=== PATIENT | female | born 1975 | race Caucasian/White ===

== ENCOUNTER 2017-02-19 08:57 | Inpatient (IN) | payer MEDICAID ==
[2017-02-19] VITALS (9 sets, daily range): BP systolic 121–140; BP diastolic 66–84; PULSE 68–90; RESP 18–19; TEMP 98.9; Ht 152.4 cm; Wt 62.4 kg
[~2017-02-19] VITALS: Ht 152.4 cm; Wt 62.4 kg
[~2017-02-19 08:57] MED LIST: AMLO5TAB4 PO; HYD25 PO; LISI20TA11 PO; METO25TA7 PO
[2017-02-19] MEDS ORDERED: NITROGLYCERIN 2% 1 GM OINT PKT TD STA (09:36)
[2017-02-19] MEDS ORDERED: ASPIRIN 325 MG TAB PO STA (09:36)
--- NOTE | 2017-02-19 09:44 | ERA ---
ER Documentation Chief Complaint Date/Time DATE: 02/19/17 TIME: 09:41 Chief Complaint Pt with intermittent CP and L arm numbness X 2 weeks, Hypertensive. HPI This is a 41-year-old female with a history of hypertension. She states she has been having chest pain described as a pressure in the center of her chest with radiation to the left upper extremity with shortness of breath and some slight diaphoresis. She says that her pain is getting more frequent and is becoming exertional. Currently she has no pain. She says the pain also sometimes radiates into her neck. She denies any past history of coronary artery disease, myocardial infarction ROS All systems reviewed and are negative except as per history of present illness. Medications Home Meds Reported Medications Amlodipine Besylate* (Norvasc*) 5 Mg Tablet, 5 MG PO DAILY, TAB 12/25/15 Hydrochlorothiazide* (Hydrochlorothiazide*) 25 Mg Tab, 25 MG PO DAILY, TAB 09/15/14 Lisinopril* (Lisinopril*) 20 Mg Tablet, 20 MG PO DAILY, TAB 09/15/14 Metoprolol Succinate* (Toprol XL*) 25 Mg Tab.sr.24h, 25 MG PO DAILY, TAB 09/15/14 Allergies Allergies: Coded Allergies: No Known Allergy (Unverified , 02/19/17) PMhx/Soc History of Surgery: No Anesthesia Reaction: No Hx Neurological Disorder: No Hx Respiratory Disorders: No Hx Cardiac Disorders: Yes (htn) Hx Psychiatric Problems: No Hx Miscellaneous Medical Probl: Yes ( HYPERCHOLESTEROLEMIA) Hx Alcohol Use: No Hx Substance Use: No Hx Tobacco Use: No FmHx Family History: No coronary disease Physical Exam Vitals Vital Signs Date Time Temp Pulse Resp B/P Pulse Ox O2 Delivery O2 Flow Rate FiO2 02/19/17 09:02 98.9 74 18 181/99 100 Physical Exam Const: Well-developed, well-nourished Head: Atraumatic, normocephalic Eyes: Normal Conjunctiva, PERRLA, EOMI, normal sclera, no nystagmus ENT: Normal External Ears, Nose and Mouth, moist mucus membranes. Neck: Full range of motion. No meningismus, no lymphadenopathy. Resp: Clear to auscultation bilaterally, no wheezing, rhonchi, rales Cardio: Regular rate and rhythm, no murmurs, S1 S2 present Abd: Soft, non tender x 4, non distended. Normal bowel sounds, no guarding or rebound, no pulsitile abdominal masses or bruits Skin: No petechiae or rashes, no ecchymosis , no maculopapular rash Back: No midline or flank tenderness Ext: No cyanosis, or edema, FROM x 4, normal inspection, neurovascularly intact x 4 Neur: Awake and alert, STR 5/5 x 4, sensation intact x 4, no focal findings, cerebellum intact Psych: Normal Mood and Affect Result Diagram: 02/19/1795402/19/17954 Results 24 hrs Laboratory Tests Test 02/19/17 09:55 White Blood Count 9.510^3/ul Red Blood Count 4.3910^6/ul Hemoglobin 13.4g/dl Hematocrit 39.0% Mean Corpuscular Volume 88.8fl Mean Corpuscular Hemoglobin 30.5pg Mean Corpuscular Hemoglobin Concent 34.4g/dl Red Cell Distribution Width 12.3% Platelet Count 99692^3/UL Mean Platelet Volume 9.8fl Neutrophils % 53.8% Lymphocytes % 32.7% Monocytes % 5.7% Eosinophils % 7.5% Basophils % 0.2% Nucleated Red Blood Cells % 0.0/100WBC Neutrophils # 5.110^3/ul Lymphocytes # 3.110^3/ul Monocytes # 0.510^3/ul Eosinophils # 0.710^3/ul Basophils # 0.010^3/ul Nucleated Red Blood Cells # 0.010^3/ul Prothrombin Time 12.6Sec Prothrombin Time Ratio 1.0 INR International Normalized Ratio 0.94 Activated Partial Thromboplast Time 26.0Sec Sodium Level 143mmol/L Potassium Level 3.6mmol/L Chloride Level 100mmol/L Carbon Dioxide Level 26mmol/L Anion Gap 21 Blood Urea Nitrogen 11mg/dl Creatinine 0.69mg/dl Glucose Level 115mg/dl Calcium Level 9.4mg/dl Total Bilirubin 0.1mg/dl Direct Bilirubin 0.00mg/dl Indirect Bilirubin 0.1mg/dl Aspartate Amino Transf (AST/SGOT) 27IU/L Alanine Aminotransferase (ALT/SGPT) 35IU/L Alkaline Phosphatase 73IU/L Troponin I < 0.012ng/ml Total Protein 8.7g/dl Albumin 4.6g/dl Globulin 4.10g/dl Albumin/Globulin Ratio 1.12 Current Medications Medications (Trade) Dose Ordered Sig/Truman Route PRN Reason Start Time Stop Time Status Last Admin Dose Admin Aspirin (Aspirin) 325 mg ONCE STAT PO 02/19/17 09:36 02/19/17 09:38 DC 02/19/17 09:54 Nitroglycerin (Nitroglycerin 2% Oint) 1 inch ONCE STAT TD 02/19/17 09:36 02/19/17 09:38 DC 02/19/17 09:54 Procedures/MDM EKG: Rate/Rhythm: Normal sinus rhythm, inverted T waves anterior laterally QRS, ST, QT: NORMAL [place], QRS, QT] Impression: Abnormal EKG Chest x-ray is currently pending Patient's symptoms are concerning for cardiac cause will require inpatient workup and continuous monitoring. Further w/u for ischemia, arrhythmia, PE or dissection will be deferred to the inpatient team. Accepting Care Team: Current data and ongoing care discussed. Time: Time of admission Primary Provider: [XOXOXO] Consulting: [XOXOXO] Outstanding Data: none Departure Diagnosis: Primary Impression: Chest pain Qualified Code: R07.9 - Chest pain, unspecified type Condition: Stable ANNA MARIE LEON DO Feb 19, 2017 09:44
[2017-02-19 10:19] LABS: BASOPHILS % 0.2 % (0.0-2.0); EOSINOPHILS # 0.7 10^3/ul (0.0-0.5); EOSINOPHILS % 7.5 % (0.0-7.0); HEMOGLOBIN 13.4 g/dl (12.0-16.0); LYMPHOCYTES # 3.1 10^3/ul (0.8-2.9); LYMPHOCYTES % 32.7 % (15.0-51.0); MEAN CORPUSCULAR HEMOGLOBIN 30.5 pg (29.0-33.0); MEAN CORPUSCULAR HGB CONC 34.4 g/dl (32.0-37.0); MEAN CORPUSCULAR VOLUME 88.8 fl (82.0-101.0); MEAN PLATELET VOLUME 9.8 fl (7.4-10.4); MONOCYTE # 0.5 10^3/ul (0.3-0.9); MONOCYTES % 5.7 % (0.0-11.0); NEUTROPHIL # 5.1 10^3/ul (1.6-7.5); NEUTROPHILS % 53.8 % (39.0-77.0); PLATELET COUNT 377 10^3/UL (140-415); RED BLOOD COUNT 4.39 10^6/ul (4.20-5.40); RED CELL DISTRIBUTION WIDTH 12.3 % (11.5-14.5); WHITE BLOOD COUNT 9.5 10^3/ul (4.8-10.8)
[2017-02-19 10:28] LABS: INR 0.94; PROTIME 12.6 Sec (12.2-14.2)
--- NOTE | 2017-02-19 10:30 | RADRPT ---
PROCEDURE: XR Chest. CLINICAL INDICATION: chest pain TECHNIQUE: Single AP view of the chest were obtained COMPARISON: 02/19/2017 FINDINGS: The heart and mediastinum are within normal limits. The pulmonary vasculature are unremarkable. The aorta is unremarkable. There is no lung consolidation, pleural effusion or pneumothorax. There i s no acute osseous abnormality. IMPRESSION: No acute disease. RPTAT: AA .Riccardo Reyez MD, Date Time Electronically viewed and signed by .Riccardo Reyez MD, MD on 02/19/2017 10:30 .J/
[2017-02-19 10:42] LABS: ALANINE AMINOTRANSFERASE 35 IU/L (13-69); ALBUMIN 4.6 g/dl (3.3-4.9); ALBUMIN/GLOBULIN RATIO 1.12; ALKALINE PHOSPHATASE 73 IU/L (42-121); ANION GAP 21 (8-16); ASPARTATE AMINO TRANSFERASE 27 IU/L (15-46); BILIRUBIN,INDIRECT 0.1 mg/dl (0-1.1); BILIRUBIN,TOTAL 0.1 mg/dl (0.2-1.3); CALCIUM 9.4 mg/dl (8.4-10.2); CARBON DIOXIDE 26 mmol/L (21-31); CHLORIDE 100 mmol/L (97-110); CREATININE 0.69 mg/dl (0.44-1.00); GLUCOSE 115 mg/dl (70-220); POTASSIUM 3.6 mmol/L (3.5-5.1); SODIUM 143 mmol/L (135-144); TOTAL PROTEIN 8.7 g/dl (6.1-8.1)
[2017-02-19 10:54] LABS: TROPONIN-I < 0.012 ng/ml (0.00-0.12)
[2017-02-19 11:09] LABS: BLOOD UREA NITROGEN 11 mg/dl (7-20)
[2017-02-19] MEDS ORDERED: ONDANSETRON 4 MG INJ IV PRN ×2 (12:00→16:00)
[2017-02-19] MEDS ORDERED: ACETAMINOPHEN 325 MG TAB PO PRN ×2 (12:00→16:00)
[2017-02-19] MEDS ORDERED: NACL 0.9% 3 ML SYG IV SCH (16:00)
[2017-02-19] MEDS ORDERED: morphine 2 MG INJ IV PRN (16:00)
[2017-02-19] MEDS ORDERED: HYDROCODONE/APAP (5/325) TAB PO PRN (16:00)
[2017-02-19] MEDS ORDERED: ZOLPIDEM 5 MG TAB PO PRN (16:00)
[2017-02-19] MEDS ORDERED: NITROGLYCERIN (SL) 0.4 MG TAB SL PRN (16:00)
[2017-02-19] MEDS ORDERED: DOCUSATE SODIUM 100 MG CAP PO PRN (16:00)
--- NOTE | 2017-02-19 16:50 | HP ---
Date/Time of Note Date/Time of Note DATE: 02/19/17 TIME: 16:47 Assessment/Plan VTE Prophylaxis VTE Prophylaxis Intervention: ambulation Lines/Catheters IV Catheter Type (from Nrsg): Saline Lock Assessment/Plan Chief Complaint/Hosp Course 1. Atypical chest pain-no evidence ACS at this time Pain is atypical exacerbated by deep respirations and movement of the left shoulder Pain is likely secondary to anxiety and muscular pain Will trend troponins, no indication for echo at this time 2. Hypertension Resume home medication Prophylaxis: Ambulate Problems: HPI/ROS Admit Date/Time Admit Date/Time Feb 19, 2017 at 11:46 Hx of Present Illness Patient is a 41-year-old female with a history of hypertension. Patient presents with chest pain for 2 months, she states that the pain is worse in the morning and evening exacerbated by movement of her shoulder and with deep inspirations. Patient describes the pain as a pressure-like sensation, she denies any cardiac history denies any shortness of breath. Patient does state that she is under a lot of stress, patient denies any nausea vomiting diaphoresis. ROS Constitutional: improved, no complaints Eyes: no complaints ENT: no complaints Respiratory: no complaints Cardiovascular: chest pain Gastrointestinal: no complaints Genitourinary: no complaints Musculoskeletal: no complaints Skin: no complaints Neurologic: no complaints Endocrine: no complaints Lymphatic: no complaints Psychological: anxiety Immunologic: no complaints PMH/Family/Social Past Medical History Medical History: hypertension Past Surgical History Past Surgical Hx: no surgical history Family History Significant Family History: no pertinent family hx Social History Alcohol Use: none Smoking Status: Never smoker Drug Use: none Exam/Review of Systems Vital Signs Vitals Vital Signs Date Time Temp Pulse Resp B/P Pulse Ox O2 Delivery O2 Flow Rate FiO2 02/19/17 15:31 98.2 67 18 135/73 98 02/19/17 13:30 Room Air Exam Constitutional: alert, oriented Head: normocephalic Respiratory: clear to auscultation Cardiovascular: regular rate and rhythm Gastrointestinal: soft, No distended Musculoskeletal: nl extremities to inspection Labs Result Diagram: 02/19/17 0955 02/19/17 0955 Medications Medications Current Medications Ondansetron HCl (Zofran Inj) 4 mg Q6H PRN IV NAUSEA AND/OR VOMITING; Start at 16:00 Acetaminophen (Tylenol Tab) 650 mg Q6H PRN PO PAIN LEVEL 1-3 OR FEVER; Start at 16:00 Acetaminophen/ Hydrocodone Bitart ([place] (5/325)) 1 tab Q6H PRN PO MODERATE PAIN LEVEL 4-6; Start 02/19/17 at 16:00 Morphine Sulfate (morphine) 2 mg Q4H PRN IV SEVERE PAIN LEVEL 7-10; Start 02/19 at 16:00 Docusate Sodium (Colace) 100 mg Q12H PRN PO CONSTIPATION; Start 02/19/17 at 16: 00 Zolpidem Tartrate (Ambien) 5 mg QHS PRN PO SLEEP; Start 02/19/17 at 16:00 Aspirin (Aspirin) 81 mg DAILY PO ; Start 02/21/17 at 09:00 Nitroglycerin (Nitroglycerin (Sl Tab) 0.4 Mg) 1 tab Q5M PRN SL CHEST PAIN; Start 02/19/17 at 16:00 Amlodipine Besylate (Norvasc) 5 mg DAILY PO ; Start 02/20/17 at 09:00 Hydrochlorothiazide (Hydrochlorothiazide) 25 mg DAILY PO ; Start 02/20/17 at 09: 00 Lisinopril (Zestril) 20 mg DAILY PO ; Start 02/20/17 at 09:00 Metoprolol Succinate (Toprol Xl) 25 mg DAILY PO ; Start 02/20/17 at 09:00 CARMEN CERON Feb 19, 2017 16:50
[2017-02-19] MEDS ORDERED: hydrALAzine 20 MG INJ IV PRN (17:00)
[2017-02-20] VITALS (9 sets, daily range): BP systolic 118–135; BP diastolic 70–82; PULSE 55–71; RESP 18
[2017-02-20 07:23] LABS: BASOPHILS % 0.2 % (0.0-2.0); EOSINOPHILS # 0.9 10^3/ul (0.0-0.5); EOSINOPHILS % 6.6 % (0.0-7.0); HEMOGLOBIN 14.3 g/dl (12.0-16.0); LYMPHOCYTES % 29.6 % (15.0-51.0); MEAN CORPUSCULAR HEMOGLOBIN 29.9 pg (29.0-33.0); MEAN CORPUSCULAR HGB CONC 33.3 g/dl (32.0-37.0); MEAN CORPUSCULAR VOLUME 89.8 fl (82.0-101.0); MEAN PLATELET VOLUME 9.6 fl (7.4-10.4); MONOCYTE # 0.7 10^3/ul (0.3-0.9); MONOCYTES % 5.4 % (0.0-11.0); NEUTROPHIL # 7.8 10^3/ul (1.6-7.5); PLATELET COUNT 429 10^3/UL (140-415); RED BLOOD COUNT 4.79 10^6/ul (4.20-5.40); RED CELL DISTRIBUTION WIDTH 12.6 % (11.5-14.5); WHITE BLOOD COUNT 13.4 10^3/ul (4.8-10.8)
[2017-02-20 07:49] LABS: CALCIUM 9.5 mg/dl (8.4-10.2); CHOL/HDL RATIO 4.6 RATIO; CREATININE 0.8 mg/dl (0.44-1.00); MAGNESIUM 1.9 mg/dl (1.7-2.5); PHOSPHORUS 3.9 mg/dl (2.5-4.9); POTASSIUM 4.1 mmol/L (3.5-5.1)
[2017-02-20] MEDS ORDERED: LISINOPRIL 20 MG TAB PO SCH (09:00)
[2017-02-20] MEDS ORDERED: AMLODIPINE 5 MG TAB PO SCH (09:00)
[2017-02-20] MEDS ORDERED: HYDROCHLOROTHIAZIDE 25 MG TAB PO SCH (09:00)
[2017-02-20] MEDS ORDERED: METOPROLOL (XL) 25 MG TAB PO SCH (09:00)
--- NOTE | 2017-02-20 11:57 | PDOCDIS ---
Discharge Instructions CONDITION Patient Condition: Good HOME CARE INSTRUCTIONS: Diet Instructions: Reduced Sodium ACTIVITY: Activity Restrictions: No Restrictions FOLLOW UP/APPOINTMENTS Follow-up Plan F/U WITH YOUR PCP IN 1-2 WEEKS CARMEN CERON Feb 20, 2017 11:57
--- NOTE | 2017-02-20 12:52 | RADRPT ---
Echocardiogram Report Patient Name: SKIP SERVIN Gender: Female Date: 1975 Study Date: 20-Feb-2017 Director Of Front Office: Jayla [facility] Location: [id number] Ref. Physician: CARMEN CERON Quality: Adequate Procedures: Transthoracic echocardiogram with complete 2D, M-Mode, and doppler examination. Indications: Chest Pain. 2D/M Mode Doppler Measurement Value Normal Ranges Measurement Value Normal Ranges LVIDd 2D 4.2 3.5 - 5.6 cm AV [place] 1.2 m/sec LVIDs 2D 2.9 2.1 - 4.1 cm AV Peak PG 6.0 mmHg FS 2D 30.6 % LVOT [place] 1.0 m/sec LVPWd 2D 1.3 0.6 - 1.1 cm LVOT Peak PG 4.0 mmHg IVSd 2D 1.3 0.6 - 1.1 cm MV E [place] 0.9 m/sec IVS/LVPW 2D 1.0 MV A [place] 0.6 m/sec AoR Diam 2D 2.4 2.0 - 3.7 cm MV E/A 1.4 LA/Ao 2D 1 0 - 1 MV Decel Time 229 msec EDV 2D 71.5 cm3 MV E/A 1.4 ESV 2D 23.9 cm3 LA Dimen 2D 3.0 2.3 - 4.0 cm Findings Left Ventricle: Normal left ventricular systolic function. Normal left ventricular cavity size. Mild concentric left ventricular hypertrophy. Ejection fraction is visually estimated at 60 %. Abnormal Diastolic Function. Right Ventricle: Normal right ventricular size. Normal right ventricular systolic function. Left Atrium: The left atrium is normal in size. Right Atrium: The right atrium is normal in size. Mitral Valve: Mitral valve leaflets appear mildly thickened. Mild mitral annular calcification. Trace mitral regurgitation. Aortic Valve: Normal appearance of the aortic valve. No significant aortic stenosis or insufficiency. Tricuspid Valve: Normal appearance of the tricuspid valve. Unable to obtain RVSP due to minimal presence of tricuspid regurgitation. There is trace tricuspid regurgitation. Pulmonic Valve: Normal pulmonic valve appearance. There is trace pulmonic regurgitation. Pericardium: Normal pericardium with no significant pericardial effusion. Aorta: Normal aortic root. IVC: Normal size and normal respiratory collapse consistent with normal right atrial pressure. Conclusions 1.Normal left ventricular systolic function. Normal left ventricular cavity size. Mild concentric left ventricular hypertrophy. Ejection fraction is visually estimated at 60 %. Abnormal Diastolic Function. 2.Mitral valve leaflets appear mildly thickened. Mild mitral annular calcification. Trace mitral regurgitation. 3.Normal appearance of the aortic valve. No significant aortic stenosis or insufficiency. 4.Normal appearance of the tricuspid valve. Unable to obtain RVSP due to minimal presence of tricuspid regurgitation. There is trace tricuspid regurgitation. Electronically Signed By: Sujit Mackenzie 20-Feb-2017 12:50:53 -0700 Patient Name: SKIP SERVIN Study Date: 20-Feb-2017 [id number]
--- NOTE | 2017-02-20 16:22 | DS ---
Date/Time of Note Date/Time of Note DATE: 02/20/17 TIME: 16:18 Discharge Summary Admission/Discharge Info Admit Date/Time Feb 19, 2017 at 11:46 Discharge Date/Time February 20, 2017 Discharge Diagnosis 1. Atypical chest pain-no evidence ACS-Pain is likely secondary to anxiety and muscular pain 2. Hypertension-stable Resume home medications Patient Condition: Good Hospital Course Patient is a 41-year-old female with a history of hypertension. Patient presents with chest pain for 2 months, she states that the pain is worse in the morning and evening exacerbated by movement of her shoulder and with deep inspirations. ACS was ruled out and echo showed no significant findings. A1c was within normal limits as was LDL. Patient's pain was felt to be secondary to anxiety and muscular pain based on history and physical exam. Patient is felt to be stable for discharge, lifestyle changes were advised to decrease patient's stress. On the day of discharge patient's vitals, labs, physical exam were stable, she had no further complaints of chest pain or any other acute complaints and questions are answered. Home Meds Reported Medications Amlodipine Besylate* (Norvasc*) 5 Mg Tablet, 5 MG PO DAILY, TAB 12/25/15 Hydrochlorothiazide* (Hydrochlorothiazide*) 25 Mg Tab, 25 MG PO DAILY, TAB 09/15/14 Lisinopril* (Lisinopril*) 20 Mg Tablet, 20 MG PO DAILY, TAB 09/15/14 Metoprolol Succinate* (Toprol XL*) 25 Mg Tab.sr.24h, 25 MG PO DAILY, TAB 09/15/14 Follow-up Plan Follow-up with PCP 1-2 week Primary Care Provider Rosemary Maza Time spent on discharge: > 30 minutes CARMEN CERON Feb 20, 2017 16:22
[2017-02-21] MEDS ORDERED: ASPIRIN 81 MG TAB PO SCH (09:00)
== END 2017-02-20 17:48 | disposition home or self-care (01) | DRG 313 ==
LOC: E/R 08:57 → MS4 11:46
PROVIDERS: ADMIT Internal Medicine; ATTEND Internal Medicine
DX: R07.89 Other chest pain (principal); I10 Essential (primary) hypertension; F41.9 Anxiety disorder, unspecified
CPT/HCPCS: 36415; 71010; 80048; 80053; 80061; 83036; 83735; 84100; 84484; 85025; 85610; 85730; 93005; 93306